=== PATIENT | female | born 1935 | race Asian ===

== ENCOUNTER 2017-12-17 13:35 | Inpatient (IN) | payer MEDICAID ==
[~2017-12-17] VITALS: Ht 154.9 cm; Wt 46.7 kg
[2017-12-17] MEDS ORDERED: SODIUM CHLORIDE 0.9% 500 ML IV ONE (13:56)
[2017-12-17] MEDS ORDERED: PANTOPRAZOLE SODIUM 40 MG/VIAL IV STA (13:56)
[2017-12-17] MEDS ORDERED: PANTOPRAZOLE 80 MG in SODIUM CHLORIDE 0.9% 80 ML IV ONE (14:00)
[2017-12-17] MEDS ORDERED: PIPERACILLIN/TAZ 3.375G PREMIX 50 ML IV ONE (14:00)
[2017-12-17 15:00] LABS: HEMATOCRIT. 31.7 % (36.0-48.0); HEMOGLOBIN. 10.4 g/dL (12.0-16.0); INR 1.1; MEAN CORPUSCULAR HEMOGLOBIN 32.9 pg (28.0-32.0); MEAN CORPUSCULAR VOLUME 100.1 fL (81.0-99.0); MEAN PLATELET VOLUME 10.6 fl (7.4-10.4); PLATELET 351 x1000/uL (130-400); PROTHROMBIN TIME 11.5 sec (9.4-11.6); RED BLOOD CELL COUNT 3.17 mill/uL (4.2-5.4); RED CELL DISTRIBUTION WIDTH 15.6 % (11.6-14.6)
[2017-12-17 15:13] LABS: CLARITY URINE TURBID (CLEAR); COLOR URINE YELLOW (YELLOW); KETONES URINE NEGATIVE (NEGATIVE); LEUKOCYTE ESTERASE URINE 2+ (NEGATIVE); NITRITE URINE NEGATIVE (NEGATIVE); OCCULT BLOOD URINE 3+ (NEGATIVE); PROTEIN URINE 3+ (NEGATIVE); SPECIFIC GRAVITY URINE 1.021 (1.005-1.030); UROBILINOGEN URINE 0.2 E.U./dL (0.2-1.0)
[2017-12-17 15:17] LABS: CARBON DIOXIDE 28 mEq/L (21-32); CHLORIDE 107 mEq/L (98-107)
[2017-12-17 15:34] LABS: TROPONIN I 0.12 ng/mL (0.00-0.04)
[2017-12-17 15:36] LABS: PLATELET ESTIMATE NORMAL
[2017-12-17] MEDS ORDERED: VANCOMYCIN 1 G PREMIX 200 ML IV SCH (16:45)
[2017-12-17 17:36] LABS: BG BASE EXCESS 3.3 mmol/L (-2.0-2.0); BG CARBOXYHEMOGLOBIN 0.3 % (0.5-1.5); BG DEOXYHEMOGLOBIN 2.4 % (0.0-5.0); BG FRACTION INSPIRED OXYGEN 40; BG HCO3 ACT 26.9 mmol/L (22.0-26.0); BG METHEMOGLOBIN 0.3 % (0.0-1.5); BG OXYGEN SATURATION 97.6 % (92.0-98.5); BG PH 7.479 (7.350-7.450); BG PO2 98.1 mmHg (75.0-100.0); BG SAMPLE SITE RIGHT RADIAL; BG TIDAL VOLUME(mL) 450 mL; BG TOTAL HEMOGLOBIN 11.1 g/dL (12.0-18.0); BG VENT MODE VENT - A/C; BG VENT RATE 14 set
[2017-12-17] MEDS ORDERED: ALBU2.5V13 NEB (21:19)
[2017-12-17] MEDS ORDERED: BENA40TA3 PO (21:19)
[2017-12-17] MEDS ORDERED: MULT9LIQ2 PO (21:19)
[2017-12-17] MEDS ORDERED: LORA1TAB PO (21:19)
[2017-12-17] MEDS ORDERED: ASCO-339 PO (21:19)
[2017-12-17] MEDS ORDERED: VIT500LI PO (21:19)
[2017-12-17] MEDS ORDERED: FE300LUD PO (21:19)
[2017-12-17] MEDS ORDERED: ACET160S PO (21:19)
[2017-12-17] MEDS ORDERED: NA P230E RC (21:19)
[2017-12-17] MEDS ORDERED: POLY15DR40 OP (21:19)
[2017-12-17] MEDS ORDERED: MIRT15TA6 PO (21:19)
[2017-12-17] MEDS ORDERED: FRUC15LI PO (21:19)
[2017-12-17] MEDS ORDERED: HYDR-4001 PO (21:19)
[2017-12-17] MEDS ORDERED: ATOR20TA65 PO (21:19)
[2017-12-17] MEDS ORDERED: LEVO50TA PO (21:19)
[2017-12-17] MEDS ORDERED: CLON0.1T PO (21:19)
[2017-12-17] MEDS ORDERED: ONDA4SOL2 PO (21:19)
[2017-12-17] MEDS ORDERED: LEVVL SQ (21:19)
[2017-12-17] MEDS ORDERED: CRAN3875 PO (21:19)
[2017-12-17] MEDS ORDERED: ACET-2128 PO ×2 (21:19→21:55)
[2017-12-17] MEDS ORDERED: DIPH25CA83 PO (21:19)
[2017-12-17] MEDS ORDERED: CALC-1011 PO (21:19)
[2017-12-17] MEDS ORDERED: DOCU-138 PO (21:19)
[2017-12-17] MEDS ORDERED: CLON0.3T PO (21:19)
[2017-12-17] MEDS ORDERED: TEMA15CA5 PO (21:19)
[2017-12-17] MEDS ORDERED: MOM PO (21:19)
[2017-12-17] MEDS ORDERED: BISA10SU62 RC (21:19)
[2017-12-17] MEDS ORDERED: FAMO20TA8 PO (21:19)
[2017-12-17] MEDS ORDERED: DEXTROSE 50% WATER 50ML SYRINGE IV PRN (23:00)
[2017-12-17] MEDS ORDERED: MORPHINE SULFATE 4 MG/ML CPJ (NOT FOR IM USE) IV PRN (23:00)
[2017-12-17] MEDS ORDERED: ENOXAPARIN 30MG/0.3ML SYR SUBCUT SCH (23:30)
[2017-12-17] MEDS: DEXT 5%/0.45% NACL 1000ML 1,000 ML IV SCH (23:32)
[2017-12-18] VITALS (13 sets, daily range): BP systolic 113–181; BP diastolic 55–97
[2017-12-18 06:35] LABS: HEMATOCRIT. 26.8 % (36.0-48.0); HEMOGLOBIN. 8.6 g/dL (12.0-16.0); MEAN CORPUSCULAR HEMOGLOBIN 32.4 pg (28.0-32.0); MEAN CORPUSCULAR VOLUME 100.8 fL (81.0-99.0); RED BLOOD CELL COUNT 2.66 mill/uL (4.2-5.4); RED CELL DISTRIBUTION WIDTH 16.1 % (11.6-14.6)
[2017-12-18] MEDS: BLOOD SUGAR DIAGNOSTIC STRIP TEST SCH ×4 (07:35→21:56)
[2017-12-18] MEDS: INSULIN LISPRO 100 UNITS/ML SUBCUT SCH ×4 (08:36→21:56)
[2017-12-18] MEDS: HYDRALAZINE 20MG/ML VIAL IV PRN (10:04)
[2017-12-18] MEDS ORDERED: LORAZEPAM 2MG/ML CPJ IV PRN (11:00)
[2017-12-18] MEDS ORDERED: LABETALOL 5MG/ML SYR 20 MG/4 ML SYRINGE IV PRN (11:00)
[2017-12-18] MEDS ORDERED: LEVOTHYROXINE SODIUM 100 MCG/ VIAL IV SCH (11:00)
[2017-12-18] MEDS: PANTOPRAZOLE SODIUM 40 MG/VIAL IV SCH ×2 (11:13→21:54)
[2017-12-18] MEDS ORDERED: POLYVINYL ALCOHOL OPHTH DROPS 15ML BOTHEYE PRN (12:00)
[2017-12-18] MEDS: PIPERACILLIN/TAZ 2.25G PREMIX 50 ML IV SCH ×2 (12:41→21:54)
[2017-12-18 12:59] LABS: MEAN PLATELET VOLUME 11.1 fl (7.4-10.4); PLATELET 310 x1000/uL (130-400); PLATELET ESTIMATE NORMAL
[2017-12-18 16:14] LABS: BASOPHILS % 0.2 % (0.0-2.0); HEMATOCRIT. 23.2 % (36.0-48.0); HEMOGLOBIN. 7.5 g/dL (12.0-16.0); LYMPHOCYTES % 7.7 % (20.0-50.0); MEAN CORPUSCULAR HEMOGLOBIN 32.4 pg (28.0-32.0); MEAN CORPUSCULAR VOLUME 100.3 fL (81.0-99.0); MEAN PLATELET VOLUME 10.4 fl (7.4-10.4); MONOCYTES % 10.9 % (2.0-8.0); NEUTROPHILS % 81.2 % (40.0-76.0); PLATELET 300 x1000/uL (130-400); RED BLOOD CELL COUNT 2.31 mill/uL (4.2-5.4); RED CELL DISTRIBUTION WIDTH 16.3 % (11.6-14.6)
[2017-12-18 17:07] LABS: HEPATITIS B SURFACE ANTIGEN NEGATIVE
[2017-12-18 17:16] LABS: FERRITIN 1374 ng/mL (10-291)
[2017-12-18 17:35] LABS: HEPATITIS B CORE AB IGM NEGATIVE
[2017-12-18 17:37] LABS: HEPATITIS A AB IGM NEGATIVE (NEGATIVE)
[2017-12-18] MEDS: DEXT 5%/0.45% NACL 1000ML 1,000 ML IV SCH (18:02)
[2017-12-18] MEDS ORDERED: VANCOMYCIN 500 MG PREMIX 100 ML IV NR (21:00)
[2017-12-18] MEDS: INSULIN GLARGINE UD 100 UNITS/ML SYR SUBCUT SCH (21:55)
[2017-12-19] VITALS (17 sets, daily range): BP systolic 127–162; BP diastolic 69–95
[2017-12-19] MEDS: ACETAMINOPHEN 650MG SUPP PR PRN (01:03)
[2017-12-19] MEDS: PIPERACILLIN/TAZ 2.25G PREMIX 50 ML IV SCH ×3 (04:40→19:43)
[2017-12-19] MEDS: LEVOTHYROXINE SODIUM 100 MCG/ VIAL IV SCH ×2 (05:55→08:21)
[2017-12-19] MEDS: HYDRALAZINE 20MG/ML VIAL IV PRN (05:57)
[2017-12-19 06:32] LABS: HEMATOCRIT 27.4 % (36.0-48.0); HEMOGLOBIN 9.2 g/dL (12.0-16.0)
[2017-12-19] MEDS: BLOOD SUGAR DIAGNOSTIC STRIP TEST SCH ×4 (07:31→21:00)
[2017-12-19 08:07] LABS: CHLORIDE 112 mEq/L (98-107)
[2017-12-19] MEDS: PANTOPRAZOLE SODIUM 40 MG/VIAL IV SCH ×2 (08:21→22:07)
[2017-12-19] MEDS: INSULIN LISPRO 100 UNITS/ML SUBCUT SCH ×4 (08:21→22:08)
[2017-12-19 09:19] LABS: CARBON DIOXIDE 21 mEq/L (21-32)
[2017-12-19] MEDS ORDERED: SIMETHICONE 40 MG/0.6 ML 30ML ONE (10:19)
[2017-12-19] MEDS ORDERED: SODIUM CHLORIDE 0.9% 10ML VIAL ONE (10:19)
[2017-12-19] MEDS ORDERED: MIDAZOLAM HCL 5 MG/5 ML VIAL ONE (14:53)
[2017-12-19] MEDS ORDERED: FENTANYL CITRATE/PF 50MCG/ML 2ML VIAL ONE (14:53)
[2017-12-19] MEDS: DEXT 5%/0.45% NACL 1000ML 1,000 ML IV SCH (15:04)
[2017-12-19] MEDS ORDERED: IPRATROPIUM/ALBUTEROL 0.5-3(2.5)MG/3ML NEB HHN PRN (15:45)
[2017-12-19] MEDS ORDERED: MIDAZOLAM HCL 5 MG/5 ML VIAL IV PRN (16:35)
[2017-12-19] MEDS ORDERED: FENTANYL CITRATE/PF 50MCG/ML 2ML VIAL IV PRN (16:36)
[2017-12-19 21:28] LABS: VITAMIN B12 SERUM 1354 pg/mL (211-911)
[2017-12-19 21:29] LABS: FOLIC ACID (FOLATE) SERUM > 20.00 ng/mL (>5.38)
[2017-12-19] MEDS: INSULIN GLARGINE UD 100 UNITS/ML SYR SUBCUT SCH (22:09)
[2017-12-20] VITALS (12 sets, daily range): BP systolic 124–169; BP diastolic 64–96
[2017-12-20] MEDS: DEXT 5%/0.45% NACL 1000ML 1,000 ML IV SCH ×2 (01:34→12:17)
[2017-12-20] MEDS: IPRATROPIUM/ALBUTEROL 0.5-3(2.5)MG/3ML NEB HHN SCH ×4 (01:36→20:03)
[2017-12-20] MEDS: PIPERACILLIN/TAZ 2.25G PREMIX 50 ML IV SCH ×3 (03:22→21:39)
[2017-12-20 06:21] LABS: HEMATOCRIT. 27.5 % (36.0-48.0); MEAN CORPUSCULAR HEMOGLOBIN 31.7 pg (28.0-32.0); PLATELET 247 x1000/uL (130-400); RED BLOOD CELL COUNT 2.93 mill/uL (4.2-5.4)
[2017-12-20 06:47] LABS: HEMOGLOBIN. 9.3 g/dL (12.0-16.0); MEAN CORPUSCULAR VOLUME 93.8 fL (81.0-99.0)
[2017-12-20 06:48] LABS: RED CELL DISTRIBUTION WIDTH 20.3 % (11.6-14.6)
[2017-12-20] MEDS: BLOOD SUGAR DIAGNOSTIC STRIP TEST SCH ×4 (07:30→21:56)
[2017-12-20] MEDS: INSULIN LISPRO 100 UNITS/ML SUBCUT SCH ×4 (08:00→21:55)
[2017-12-20] MEDS: PANTOPRAZOLE SODIUM 40 MG/VIAL IV SCH ×2 (08:42→21:40)
[2017-12-20] MEDS: LEVOTHYROXINE SODIUM 100 MCG/ VIAL IV SCH (08:42)
[2017-12-20] MEDS: HYDRALAZINE 20MG/ML VIAL IV PRN (13:48)
[2017-12-20] MEDS: POTASSIUM CHLORIDE 20MEQ/PACKET PEG SCH (13:49)
[2017-12-20] MEDS ORDERED: VANCOMYCIN 500 MG PREMIX 100 ML IV NR (15:00)
[2017-12-20 16:23] LABS: NUCLEATED RED BLOOD CELLS 1 /100 WBC; PLATELET ESTIMATE NORMAL
[2017-12-20] MEDS: INSULIN GLARGINE UD 100 UNITS/ML SYR SUBCUT SCH (22:25)
[2017-12-21] VITALS (13 sets, daily range): BP systolic 117–161; BP diastolic 67–96
[2017-12-21] MEDS: IPRATROPIUM/ALBUTEROL 0.5-3(2.5)MG/3ML NEB HHN SCH ×4 (02:09→20:10)
[2017-12-21] MEDS: DEXT 5%/0.45% NACL 1000ML 1,000 ML IV SCH (05:06)
[2017-12-21] MEDS: PIPERACILLIN/TAZ 2.25G PREMIX 50 ML IV SCH ×3 (05:06→21:15)
[2017-12-21] MEDS: INSULIN LISPRO 100 UNITS/ML SUBCUT SCH ×4 (07:20→21:00)
[2017-12-21] MEDS: BLOOD SUGAR DIAGNOSTIC STRIP TEST SCH ×4 (07:21→21:15)
[2017-12-21 08:24] LABS: BG BASE EXCESS -0.2 mmol/L (-2.0-2.0); BG CARBOXYHEMOGLOBIN 0.2 % (0.5-1.5); BG DEOXYHEMOGLOBIN 1.6 % (0.0-5.0); BG FRACTION INSPIRED OXYGEN 40; BG HCO3 ACT 23.7 mmol/L (22.0-26.0); BG METHEMOGLOBIN 0.6 % (0.0-1.5); BG OXYGEN SATURATION 98.4 % (92.0-98.5); BG OXYHEMOGLOBIN 97.6 % (94.0-97.0); BG PCO2 35.4 mmHg (35.0-45.0); BG PH 7.443 (7.350-7.450); BG PO2 119.8 mmHg (75.0-100.0); BG SAMPLE SITE RIGHT RADIAL; BG TIDAL VOLUME(mL) 450 mL; BG TOTAL HEMOGLOBIN 9.6 g/dL (12.0-18.0); BG VENT MODE VENT - A/C; BG VENT RATE 14 set
[2017-12-21] MEDS: PANTOPRAZOLE SODIUM 40 MG/VIAL IV SCH ×2 (08:25→21:14)
[2017-12-21] MEDS: POTASSIUM CHLORIDE 20MEQ/PACKET PEG SCH (08:25)
[2017-12-21] MEDS: LEVOTHYROXINE SODIUM 100 MCG/ VIAL IV SCH (08:25)
[2017-12-21 09:21] LABS: HEMATOCRIT 28.9 % (36.0-48.0); HEMOGLOBIN 9.4 g/dL (12.0-16.0)
[2017-12-21 11:37] LABS: HEMATOCRIT. 28.9 % (36.0-48.0); HEMOGLOBIN. 9.4 g/dL (12.0-16.0); MEAN CORPUSCULAR HEMOGLOBIN 31.2 pg (28.0-32.0); MEAN CORPUSCULAR VOLUME 95.9 fL (81.0-99.0); MEAN PLATELET VOLUME 10.1 fl (7.4-10.4); PLATELET 268 x1000/uL (130-400); RED BLOOD CELL COUNT 3.01 mill/uL (4.2-5.4); RED CELL DISTRIBUTION WIDTH 19.9 % (11.6-14.6)
[2017-12-21] MEDS ORDERED: AMIKACIN SULFATE IV NR (16:00)
[2017-12-21] MEDS ORDERED: SODIUM CHLORIDE 0.9% IV NR (16:00)
[2017-12-21 16:19] LABS: ATYPICAL LYMPHOCYTES 2
[2017-12-21 16:20] LABS: PLATELET ESTIMATE NORMAL
[2017-12-21] MEDS: ACETAMINOPHEN 650MG SUPP PR PRN (17:39)
[2017-12-21] MEDS: INSULIN GLARGINE UD 100 UNITS/ML SYR SUBCUT SCH (21:31)
[2017-12-22] VITALS (12 sets, daily range): BP systolic 103–180; BP diastolic 59–93
[2017-12-22] MEDS: IPRATROPIUM/ALBUTEROL 0.5-3(2.5)MG/3ML NEB HHN SCH ×4 (03:10→19:45)
[2017-12-22] MEDS: HYDRALAZINE 20MG/ML VIAL IV PRN (04:30)
[2017-12-22] MEDS: PIPERACILLIN/TAZ 2.25G PREMIX 50 ML IV SCH ×2 (04:30→12:37)
[2017-12-22] MEDS: BLOOD SUGAR DIAGNOSTIC STRIP TEST SCH ×3 (05:45→18:05)
[2017-12-22] MEDS: INSULIN LISPRO 100 UNITS/ML SUBCUT SCH ×3 (06:12→18:06)
[2017-12-22 06:31] LABS: HEMOGLOBIN 10.6 g/dL (12.0-16.0)
[2017-12-22] MEDS: PANTOPRAZOLE SODIUM 40 MG/VIAL IV SCH ×2 (08:30→21:04)
[2017-12-22] MEDS: POTASSIUM CHLORIDE 20MEQ/PACKET PEG SCH (08:30)
[2017-12-22] MEDS: LEVOTHYROXINE SODIUM 100 MCG/ VIAL IV SCH (08:30)
[2017-12-22 10:14] LABS: HEMATOCRIT. 33.1 % (36.0-48.0); HEMOGLOBIN. 10.5 g/dL (12.0-16.0); MEAN CORPUSCULAR VOLUME 97.5 fL (81.0-99.0); MEAN PLATELET VOLUME 10.1 fl (7.4-10.4); PLATELET 296 x1000/uL (130-400); RED BLOOD CELL COUNT 3.39 mill/uL (4.2-5.4); RED CELL DISTRIBUTION WIDTH 19.8 % (11.6-14.6)
[2017-12-22 10:47] LABS: PLATELET ESTIMATE NORMAL
[2017-12-22] MEDS ORDERED: VANCOMYCIN 500 MG PREMIX 100 ML IV NR (13:00)
[2017-12-22] MEDS ORDERED: INSULIN LISPRO 100 UNITS/ML SUBCUT SCH (18:00)
[2017-12-22] MEDS ORDERED: *TOBRAMYCIN PER PHARMACY XX SCH (18:15)
[2017-12-22] MEDS ORDERED: MORPHINE SULFATE 2 MG/ML CPJ (NOT FOR IM USE) IV PRN (19:15)
[2017-12-22] MEDS ORDERED: TOBRAMYCIN SULFATE 100 MG in SODIUM CHLORIDE 0.9% 100 ML IV NR (20:00)
[2017-12-22] MEDS ORDERED: AMIKACIN SULFATE 450 MG in SODIUM CHLORIDE 0.9% 100 ML IV NR (20:00)
[2017-12-22] MEDS: INSULIN GLARGINE UD 100 UNITS/ML SYR SUBCUT SCH (22:06)
[2017-12-23] VITALS (14 sets, daily range): BP systolic 108–158; BP diastolic 60–89
[2017-12-23] MEDS: IPRATROPIUM/ALBUTEROL 0.5-3(2.5)MG/3ML NEB HHN SCH ×4 (01:45→19:48)
[2017-12-23] MEDS: BLOOD SUGAR DIAGNOSTIC STRIP TEST SCH ×4 (05:19→17:17)
[2017-12-23] MEDS: INSULIN LISPRO 100 UNITS/ML SUBCUT SCH ×4 (05:35→17:15)
[2017-12-23 05:55] LABS: PHOSPHORUS 1.9 mg/dL (2.5-4.9)
[2017-12-23 06:05] LABS: BASOPHILS % 0.3 % (0.0-2.0); EOSINOPHILS % 4.3 % (0.0-5.0); HEMATOCRIT. 25.5 % (36.0-48.0); HEMOGLOBIN. 8.4 g/dL (12.0-16.0); MEAN CORPUSCULAR HEMOGLOBIN 31.9 pg (28.0-32.0); MEAN PLATELET VOLUME 10.3 fl (7.4-10.4); MONOCYTES % 5.2 % (2.0-8.0); NEUTROPHILS % 80.2 % (40.0-76.0); PLATELET 235 x1000/uL (130-400); RED BLOOD CELL COUNT 2.63 mill/uL (4.2-5.4); RED CELL DISTRIBUTION WIDTH 19.5 % (11.6-14.6)
[2017-12-23] MEDS: PANTOPRAZOLE SODIUM 40 MG/VIAL IV SCH ×2 (08:23→20:55)
[2017-12-23] MEDS: POTASSIUM CHLORIDE 20MEQ/PACKET PEG SCH (08:23)
[2017-12-23] MEDS: LEVOTHYROXINE SODIUM 100 MCG/ VIAL IV SCH (08:23)
[2017-12-23 09:47] LABS: TOBRAMYCIN RANDOM 4.1 ucg/mL
[2017-12-23] MEDS: VANCOMYCIN 500 MG PREMIX 100 ML IV SCH (17:20)
[2017-12-23] MEDS: TOBRAMYCIN SULFATE 120 MG in SODIUM CHLORIDE 0.9% 100 ML IV SCH (20:55)
[2017-12-23] MEDS ORDERED: POTASSIUM PHOS,M-BASIC-D-BASIC 20 MMOL in DEXT 5% WATER 243.3333 ML IV ONE (22:00)
[2017-12-23] MEDS: INSULIN GLARGINE UD 100 UNITS/ML SYR SUBCUT SCH (22:52)
[2017-12-24] VITALS (13 sets, daily range): BP systolic 128–160; BP diastolic 70–89
[2017-12-24] MEDS: IPRATROPIUM/ALBUTEROL 0.5-3(2.5)MG/3ML NEB HHN SCH ×4 (01:54→20:16)
[2017-12-24 05:59] LABS: BASOPHILS % 0.3 % (0.0-2.0); EOSINOPHILS % 5.6 % (0.0-5.0); HEMATOCRIT. 25.1 % (36.0-48.0); HEMOGLOBIN. 8.4 g/dL (12.0-16.0); LYMPHOCYTES % 11.4 % (20.0-50.0); MEAN CORPUSCULAR HEMOGLOBIN 32.2 pg (28.0-32.0); MEAN CORPUSCULAR VOLUME 96.9 fL (81.0-99.0); MEAN PLATELET VOLUME 10.3 fl (7.4-10.4); MONOCYTES % 5.5 % (2.0-8.0); NEUTROPHILS % 77.2 % (40.0-76.0); PLATELET 262 x1000/uL (130-400); RED BLOOD CELL COUNT 2.59 mill/uL (4.2-5.4); RED CELL DISTRIBUTION WIDTH 19.5 % (11.6-14.6)
[2017-12-24] MEDS: INSULIN LISPRO 100 UNITS/ML SUBCUT SCH ×5 (06:00→23:51)
[2017-12-24] MEDS: BLOOD SUGAR DIAGNOSTIC STRIP TEST SCH ×5 (06:00→23:42)
[2017-12-24 06:33] LABS: PHOSPHORUS 4.6 mg/dL (2.5-4.9)
[2017-12-24] MEDS: LEVOTHYROXINE SODIUM 100 MCG/ VIAL IV SCH (08:12)
[2017-12-24] MEDS: PANTOPRAZOLE SODIUM 40 MG/VIAL IV SCH (08:12)
[2017-12-24] MEDS: POTASSIUM CHLORIDE 20MEQ/PACKET PEG SCH (08:12)
[2017-12-24] MEDS ORDERED: ASCORBIC ACID 500MG/5ML 120ML PO ONE (10:45)
[2017-12-24] MEDS ORDERED: AMLODIPINE 5MG TABLET PO NR (11:00)
[2017-12-24] MEDS: MULTIVITAMINS,THER W-MINERALS TABLET PO SCH (11:24)
[2017-12-24] MEDS: ASCORBIC ACID 500 MG TABLET PO SCH (11:25)
[2017-12-24] MEDS: FERROUS SULFATE 300MG/5ML UDC PO SCH ×2 (14:10→16:31)
[2017-12-24] MEDS: CALCIUM CARBONATE/VITAMIN D3 500MG TABLET PO SCH (16:31)
[2017-12-24] MEDS: DEXT 5%/0.45% NACL 1000ML 1,000 ML IV SCH (16:32)
[2017-12-24] MEDS: MIRTAZAPINE 15MG TABLET PO SCH (21:10)
[2017-12-24] MEDS ORDERED: INSULIN GLARGINE UD 100 UNITS/ML SYR SUBCUT SCH (22:00)
[2017-12-25] VITALS (19 sets, daily range): BP systolic 113–164; BP diastolic 65–84
[2017-12-25] MEDS: IPRATROPIUM/ALBUTEROL 0.5-3(2.5)MG/3ML NEB HHN SCH ×4 (02:03→20:11)
[2017-12-25] MEDS: VANCOMYCIN 500 MG PREMIX 100 ML IV SCH (05:25)
[2017-12-25 05:46] LABS: BASOPHILS % 0.4 % (0.0-2.0); EOSINOPHILS % 3.9 % (0.0-5.0); HEMATOCRIT. 26.5 % (36.0-48.0); HEMOGLOBIN. 8.8 g/dL (12.0-16.0); LYMPHOCYTES % 12.4 % (20.0-50.0); MEAN CORPUSCULAR HEMOGLOBIN 31.9 pg (28.0-32.0); MEAN CORPUSCULAR VOLUME 96.6 fL (81.0-99.0); MEAN PLATELET VOLUME 10.5 fl (7.4-10.4); MONOCYTES % 5.7 % (2.0-8.0); NEUTROPHILS % 77.6 % (40.0-76.0); PLATELET 306 x1000/uL (130-400); RED BLOOD CELL COUNT 2.74 mill/uL (4.2-5.4); RED CELL DISTRIBUTION WIDTH 18.5 % (11.6-14.6)
[2017-12-25] MEDS: INSULIN LISPRO 100 UNITS/ML SUBCUT SCH ×4 (06:00→23:49)
[2017-12-25] MEDS: BLOOD SUGAR DIAGNOSTIC STRIP TEST SCH ×4 (06:06→23:49)
[2017-12-25] MEDS: FERROUS SULFATE 300MG/5ML UDC PO SCH ×3 (08:20→17:37)
[2017-12-25] MEDS: POTASSIUM CHLORIDE 20MEQ/PACKET PEG SCH (08:20)
[2017-12-25] MEDS: ATORVASTATIN CALCIUM 20MG TABLET PO SCH (08:21)
[2017-12-25] MEDS: AMLODIPINE 5MG TABLET PO SCH (08:21)
[2017-12-25] MEDS: CALCIUM CARBONATE/VITAMIN D3 500MG TABLET PO SCH ×2 (08:21→17:37)
[2017-12-25] MEDS: PANTOPRAZOLE SODIUM 40 MG/VIAL IV SCH (08:25)
[2017-12-25] MEDS: ASCORBIC ACID 500 MG TABLET PO SCH (08:26)
[2017-12-25] MEDS: MULTIVITAMINS,THER W-MINERALS TABLET PO SCH (08:26)
[2017-12-25 10:54] LABS: TOBRAMYCIN RANDOM 0.8 ucg/mL
[2017-12-25] MEDS: LEVOTHYROXINE SODIUM 75MCG TABLET PO SCH (11:30)
[2017-12-25] MEDS: METOCLOPRAMIDE HCL 10MG/2ML VIAL IV SCH (17:37)
[2017-12-25] MEDS: DEXT 5%/0.45% NACL 1000ML 1,000 ML IV SCH (17:38)
[2017-12-25] MEDS: TOBRAMYCIN SULFATE 120 MG in SODIUM CHLORIDE 0.9% 100 ML IV SCH (20:10)
[2017-12-25] MEDS: MIRTAZAPINE 15MG TABLET PO SCH (20:10)
[2017-12-26] VITALS (13 sets, daily range): BP systolic 105–162; BP diastolic 45–108
[2017-12-26] MEDS: IPRATROPIUM/ALBUTEROL 0.5-3(2.5)MG/3ML NEB HHN SCH ×4 (02:12→20:02)
[2017-12-26] MEDS: METOCLOPRAMIDE HCL 10MG/2ML VIAL IV SCH ×4 (05:30→18:08)
[2017-12-26] MEDS: INSULIN LISPRO 100 UNITS/ML SUBCUT SCH ×3 (05:45→18:00)
[2017-12-26] MEDS: BLOOD SUGAR DIAGNOSTIC STRIP TEST SCH ×3 (05:45→18:08)
[2017-12-26 06:37] LABS: BASOPHILS % 0.3 % (0.0-2.0); EOSINOPHILS % 3.2 % (0.0-5.0); HEMATOCRIT. 26.7 % (36.0-48.0); HEMOGLOBIN. 8.8 g/dL (12.0-16.0); LYMPHOCYTES % 13.2 % (20.0-50.0); MEAN CORPUSCULAR HEMOGLOBIN 31.8 pg (28.0-32.0); MEAN CORPUSCULAR VOLUME 96.1 fL (81.0-99.0); MEAN PLATELET VOLUME 9.9 fl (7.4-10.4); MONOCYTES % 6.4 % (2.0-8.0); NEUTROPHILS % 76.9 % (40.0-76.0); PLATELET 300 x1000/uL (130-400); RED BLOOD CELL COUNT 2.78 mill/uL (4.2-5.4); RED CELL DISTRIBUTION WIDTH 18.6 % (11.6-14.6)
[2017-12-26] MEDS: LEVOTHYROXINE SODIUM 75MCG TABLET PO SCH (08:16)
[2017-12-26] MEDS: ATORVASTATIN CALCIUM 20MG TABLET PO SCH (08:16)
[2017-12-26] MEDS: POTASSIUM CHLORIDE 20MEQ/PACKET PEG SCH (08:16)
[2017-12-26] MEDS: PANTOPRAZOLE SODIUM 40 MG/VIAL IV SCH (08:16)
[2017-12-26] MEDS: FERROUS SULFATE 300MG/5ML UDC PO SCH ×3 (08:16→18:08)
[2017-12-26] MEDS: CALCIUM CARBONATE/VITAMIN D3 500MG TABLET PO SCH ×2 (08:17→18:08)
[2017-12-26] MEDS: ASCORBIC ACID 500 MG TABLET PO SCH (08:17)
[2017-12-26] MEDS: AMLODIPINE 5MG TABLET PO SCH (08:17)
[2017-12-26] MEDS: MULTIVITAMINS,THER W-MINERALS TABLET PO SCH (08:17)
[2017-12-26 08:19] LABS: BG BASE EXCESS -2.3 mmol/L (-2.0-2.0); BG CARBOXYHEMOGLOBIN 0.3 % (0.5-1.5); BG DEOXYHEMOGLOBIN 2.5 % (0.0-5.0); BG FRACTION INSPIRED OXYGEN 30; BG HCO3 ACT 20.9 mmol/L (22.0-26.0); BG METHEMOGLOBIN 0.5 % (0.0-1.5); BG OXYGEN SATURATION 97.5 % (92.0-98.5); BG OXYHEMOGLOBIN 96.7 % (94.0-97.0); BG PO2 92.8 mmHg (75.0-100.0); BG SAMPLE SITE RIGHT RADIAL; BG TIDAL VOLUME(mL) 450 mL; BG TOTAL HEMOGLOBIN 9.6 g/dL (12.0-18.0); BG VENT MODE VENT - A/C; BG VENT RATE 14 set
[2017-12-26] MEDS ORDERED: VANCOMYCIN 500 MG PREMIX 100 ML IV SCH (18:00)
[2017-12-26] MEDS ORDERED: VANCOMYCIN 750 MG PREMIX 150 ML IV SCH (18:00)
[2017-12-26] MEDS: DEXT 5%/0.45% NACL 1000ML 1,000 ML IV SCH (20:14)
[2017-12-26] MEDS: MIRTAZAPINE 15MG TABLET PO SCH (20:15)
[2017-12-27] VITALS (9 sets, daily range): BP systolic 123–158; BP diastolic 72–86
[2017-12-27] MEDS: IPRATROPIUM/ALBUTEROL 0.5-3(2.5)MG/3ML NEB HHN SCH ×2 (01:58→08:14)
[2017-12-27] MEDS: METOCLOPRAMIDE HCL 10MG/2ML VIAL IV SCH ×3 (05:04→12:00)
[2017-12-27] MEDS: BLOOD SUGAR DIAGNOSTIC STRIP TEST SCH ×3 (05:21→12:01)
[2017-12-27] MEDS: INSULIN LISPRO 100 UNITS/ML SUBCUT SCH ×3 (05:21→12:00)
[2017-12-27 06:21] LABS: BASOPHILS % 0.7 % (0.0-2.0); EOSINOPHILS % 3.6 % (0.0-5.0); HEMATOCRIT. 26.8 % (36.0-48.0); HEMOGLOBIN. 8.7 g/dL (12.0-16.0); LYMPHOCYTES % 16.3 % (20.0-50.0); MEAN CORPUSCULAR HEMOGLOBIN 31.5 pg (28.0-32.0); MEAN CORPUSCULAR VOLUME 97.4 fL (81.0-99.0); MEAN PLATELET VOLUME 10.7 fl (7.4-10.4); MONOCYTES % 7.8 % (2.0-8.0); NEUTROPHILS % 71.6 % (40.0-76.0); PLATELET 301 x1000/uL (130-400); RED BLOOD CELL COUNT 2.75 mill/uL (4.2-5.4); RED CELL DISTRIBUTION WIDTH 18.7 % (11.6-14.6)
[2017-12-27] MEDS: DEXT 5%/0.45% NACL 1000ML 1,000 ML IV SCH (07:55)
[2017-12-27] MEDS: PANTOPRAZOLE SODIUM 40 MG/VIAL IV SCH (08:05)
[2017-12-27] MEDS: CALCIUM CARBONATE/VITAMIN D3 500MG TABLET PO SCH ×2 (08:05→17:00)
[2017-12-27] MEDS: FERROUS SULFATE 300MG/5ML UDC PO SCH ×3 (08:05→17:08)
[2017-12-27] MEDS: POTASSIUM CHLORIDE 20MEQ/PACKET PEG SCH (08:05)
[2017-12-27] MEDS: AMLODIPINE 5MG TABLET PO SCH (08:05)
[2017-12-27] MEDS: LEVOTHYROXINE SODIUM 75MCG TABLET PO SCH (08:05)
[2017-12-27] MEDS: ATORVASTATIN CALCIUM 20MG TABLET PO SCH (08:05)
[2017-12-27] MEDS: ASCORBIC ACID 500 MG TABLET PO SCH (08:05)
[2017-12-27] MEDS: MULTIVITAMINS,THER W-MINERALS TABLET PO SCH (08:06)
[2017-12-27 10:39] LABS: TOBRAMYCIN RANDOM 0.9 ucg/mL
[2017-12-27] MEDS ORDERED: SORBITOL 70% SOLN 30ML PO SCH (13:00)
[2017-12-27] MEDS: ACETAMINOPHEN 650MG SUPP PR PRN (17:08)
[2017-12-28] MEDS ORDERED: VANCOMYCIN 500 MG PREMIX 100 ML IV NR
== END 2017-12-27 17:30 | DRG 222 ==
LOC: ER 13:58 → 5EST 17:05 → EDBEDREQSVC 17:08 → EDBEDREQTM 17:08 → EDBEDREQ 17:08 → ENRESERV 18:07
PROVIDERS: ADMIT Internal Medicine Nephrology; ATTEND Internal Medicine Nephrology
PROC: 5A1955Z Respiratory Ventilation, Greater than 96 Consecutive Hours (ICD-10-PCS; principal; 2017-12-17)
PROC: 0DH63UZ Insertion of Feeding Device into Stomach, Percutaneous Approach (ICD-10-PCS; 2017-12-19)
PROC: 0DP64UZ Removal of Feeding Device from Stomach, Percutaneous Endoscopic Approach (ICD-10-PCS; 2017-12-19)
PROC: 30233N1 Transfusion of Nonautologous Red Blood Cells into Peripheral Vein, Percutaneous Approach (ICD-10-PCS; 2017-12-19)
DX: K94.21 Gastrostomy hemorrhage (principal); J69.0 Pneumonitis due to inhalation of food and vomit; J96.20 Acute and chronic respiratory failure, unspecified whether with hypoxia or hypercapnia; E43 Unspecified severe protein-calorie malnutrition; A41.9 Sepsis, unspecified organism; I50.43 Acute on chronic combined systolic (congestive) and diastolic (congestive) heart failure; J15.1 Pneumonia due to Pseudomonas; E83.42 Hypomagnesemia; K56.7 Ileus, unspecified; N17.9 Acute kidney failure, unspecified; E87.0 Hyperosmolality and hypernatremia; K94.23 Gastrostomy malfunction; I13.0 Hypertensive heart and chronic kidney disease with heart failure and stage 1 through stage 4 chronic kidney disease, or unspecified chronic kidney disease; N39.0 Urinary tract infection, site not specified; D64.9 Anemia, unspecified; E03.9 Hypothyroidism, unspecified; E83.52 Hypercalcemia; E11.65 Type 2 diabetes mellitus with hyperglycemia; R62.7 Adult failure to thrive; N81.4 Uterovaginal prolapse, unspecified; N18.9 Chronic kidney disease, unspecified; E11.22 Type 2 diabetes mellitus with diabetic chronic kidney disease; E83.39 Other disorders of phosphorus metabolism; E87.6 Hypokalemia; Y83.3 Surgical operation with formation of external stoma as the cause of abnormal reaction of the patient, or of later complication, without mention of misadventure at the time of the procedure; F03.90 Unspecified dementia, unspecified severity, without behavioral disturbance, psychotic disturbance, mood disturbance, and anxiety; Y82.8 Other medical devices associated with adverse incidents; Z87.820 Personal history of traumatic brain injury; Z68.1 Body mass index [BMI] 19.9 or less, adult; Z99.11 Dependence on respirator [ventilator] status
CPT/HCPCS: 36415; 36600; 71045; 74018; 76700; 80048; 80053; 80200; 80202; 81001; 82270; 82375; 82607; 82728; 82746; 82805; 82962; 83036; 83540; 83550; 83605; 83735; 83880; 83970; 84100; 84145; 84443; 84484; 85014; 85018; 85025; 85610; 86705; 86709; 86803; 86850; 86900; 86920; 87040; 87070; 87077; 87086; 87186; 87340; 87804; 93005; 94002; 94003; 94640; 94664; 96365; 96366; 96368; 96375; 99285; A4216; A6261; C9113; J0278; J0360; J1650; J1815; J2060; J2250; J2543; J2765; J3010; J3260; J3370; J3490; J7030; J7040; J7050; J7060; J7620; P9016; A4315

== ENCOUNTER 2018-05-08 21:00 | Inpatient (IN) | payer MEDICAID ==
[~2018-05-08] VITALS: Ht 154.9 cm; Wt 59.1 kg
[~2018-05-08 21:00] MED LIST: ACET-2128 PO; ALBU2.5V13 NEB; ASCO-339 PO; ATOR20TA65 PO; BENA40TA3 PO; BISA10SU62 RC; CALC-1011 PO; CLON0.1T PO; CRAN3875 PO; DIPH25CA83 PO; DOCU-138 PO; FAMO20TA8 PO; FE300LUD PO; FRUC15LI PO; HYDR-4001 PO; LEVO50TA PO; LEVVL SQ; LORA1TAB PO; MIRT15TA6 PO; MOM PO; MULT9LIQ2 PO; NA P230E RC; ONDA4SOL2 PO; POLY15DR40 OP; TEMA15CA5 PO; VIT500LI PO
[2018-05-08] MEDS ORDERED: VANCOMYCIN 500 MG PREMIX 100 ML IV STA (21:13)
[2018-05-08] MEDS ORDERED: PIPERACILLIN/TAZ 3.375G PREMIX 50 ML IV ONE (21:15)
[2018-05-08] MEDS ORDERED: SODIUM CHLORIDE 0.9% 1000ML BAG (SEPSIS BOLUS) IV ONE (21:15)
[2018-05-08] MEDS ORDERED: VECURONIUM BROMIDE 10 MG/VIAL IV ONE (21:30)
[2018-05-08] MEDS ORDERED: ONDANSETRON HCL 4MG/2ML VIAL IV ONE (21:30)
[2018-05-08 21:59] LABS: BG BASE EXCESS -0.4 mmol/L (-2.0-2.0); BG CARBOXYHEMOGLOBIN 0.4 % (0.5-1.5); BG DEOXYHEMOGLOBIN 0.3 % (0.0-5.0); BG FRACTION INSPIRED OXYGEN 100; BG HCO3 ACT 24.7 mmol/L (22.0-26.0); BG METHEMOGLOBIN 0.3 % (0.0-1.5); BG OXYGEN SATURATION 99.7 % (92.0-98.5); BG PCO2 42.1 mmHg (35.0-45.0); BG PH 7.386 (7.350-7.450); BG PIP 16 cmH2O; BG PO2 429.7 mmHg (75.0-100.0); BG SAMPLE SITE LEFT RADIAL; BG TIDAL VOLUME(mL) 400 mL; BG TOTAL HEMOGLOBIN 11.9 g/dL (12.0-18.0); BG VENT MODE VENT - A/C; BG VENT RATE 14 set
[2018-05-08 22:11] LABS: CHLORIDE 107 mEq/L (98-107)
[2018-05-08 22:13] LABS: PARTIAL THROMBOPLASTIN TIME 23.8 sec (23.4-31.0); PROTHROMBIN TIME 10.8 sec (9.4-11.6)
[2018-05-08] MEDS ORDERED: HYDROMORPHONE HCL/PF 2MG/ML CPJ IV PRN (23:00)
[2018-05-09] VITALS (30 sets, daily range): BP systolic 91–150; BP diastolic 42–103
[2018-05-09 01:05] LABS: HEMATOCRIT. 30.3 % (36.0-48.0); HEMOGLOBIN. 9.5 g/dL (12.0-16.0); MEAN CORPUSCULAR HEMOGLOBIN 32.4 pg (28.0-32.0); MEAN CORPUSCULAR VOLUME 102.7 fL (81.0-99.0); PLATELET 230 x1000/uL (130-400); RED BLOOD CELL COUNT 2.95 mill/uL (4.2-5.4); RED CELL DISTRIBUTION WIDTH 15.6 % (11.6-14.6)
[2018-05-09] MEDS ORDERED: ONDANSETRON HCL 4MG/2ML VIAL IV PRN (04:08)
[2018-05-09] MEDS ORDERED: MAGNESIUM/ALUMINUM HYDROXIDE/SIMETHICONE 30ML UDC PO PRN (04:09)
[2018-05-09] MEDS ORDERED: ACETAMINOPHEN 650MG/20.3ML UDC GT PRN (04:09)
[2018-05-09] MEDS ORDERED: LORAZEPAM 2MG/ML CPJ IV PRN (04:10)
[2018-05-09] MEDS ORDERED: MORPHINE SULFATE 4 MG/ML CPJ (NOT FOR IM USE) IV PRN (04:12)
[2018-05-09] MEDS: SODIUM CHLORIDE 0.9% 1,000 ML IV SCH ×2 (04:27→22:11)
[2018-05-09 04:29] LABS: PLATELET ESTIMATE NORMAL
[2018-05-09] MEDS ORDERED: METRONIDAZOLE 500 MG PREMIX 100 ML IV SCH (05:00)
[2018-05-09] MEDS ORDERED: CEFEPIME 2,000 MG in DEXT 5% WATER 100 ML IV SCH (06:00)
[2018-05-09] MEDS: IPRATROPIUM/ALBUTEROL 0.5-3(2.5)MG/3ML NEB HHN SCH ×5 (08:15→23:46)
[2018-05-09] MEDS ORDERED: ENOXAPARIN 40MG/0.4ML SYR SUBCUT SCH (09:00)
[2018-05-09] MEDS: ENOXAPARIN 30MG/0.3ML SYR SUBCUT SCH (09:48)
[2018-05-09 09:52] LABS: BASOPHILS % 0.4 % (0.0-2.0); EOSINOPHILS % 0.8 % (0.0-5.0); HEMOGLOBIN. 9.4 g/dL (12.0-16.0); LYMPHOCYTES % 8.3 % (20.0-50.0); MEAN CORPUSCULAR HEMOGLOBIN 33.2 pg (28.0-32.0); MEAN CORPUSCULAR VOLUME 102.1 fL (81.0-99.0); MEAN PLATELET VOLUME 11.9 fl (7.4-10.4); MONOCYTES % 6.9 % (2.0-8.0); NEUTROPHILS % 83.6 % (40.0-76.0); PLATELET 206 x1000/uL (130-400); RED BLOOD CELL COUNT 2.84 mill/uL (4.2-5.4); RED CELL DISTRIBUTION WIDTH 15.9 % (11.6-14.6)
[2018-05-09 11:31] LABS: CLARITY URINE CLOUDY (CLEAR); COLOR URINE YELLOW (YELLOW); KETONES URINE NEGATIVE (NEGATIVE); LEUKOCYTE ESTERASE URINE 3+ (NEGATIVE); NITRITE URINE NEGATIVE (NEGATIVE); OCCULT BLOOD URINE TRACE (NEGATIVE); PH URINE 6.5 (4.5-8.0); PROTEIN URINE 1+ (NEGATIVE); SPECIFIC GRAVITY URINE 1.017 (1.005-1.030); UROBILINOGEN URINE 0.2 E.U./dL (0.2-1.0)
[2018-05-09 12:23] LABS: *AMPHETAMINES SCREEN URINE NEGATIVE (NEGATIVE); *BARBITURATES SCREEN URINE NEGATIVE (NEGATIVE)
[2018-05-09 12:24] LABS: *BENZODIAZEPINES SCREEN URINE NEGATIVE (NEGATIVE); *COCAINE SCREEN URINE NEGATIVE (NEGATIVE); METHADONE URINE SCREEN NEGATIVE (NEGATIVE); OPIATES URINE SCREEN PRESUMTIVE POSITIVE (NEGATIVE)
[2018-05-09 12:25] LABS: CANNABINOID URINE SCREEN NEGATIVE (NEGATIVE); PHENCYCLIDINE URINE SCREEN NEGATIVE (NEGATIVE)
[2018-05-09] MEDS ORDERED: PIPERACILLIN/TAZ 3.375G PREMIX 50 ML IV SCH (13:00)
[2018-05-09] MEDS ORDERED: PANTOPRAZOLE 40MG DR TABLET PO ONE (13:15)
[2018-05-09] MEDS ORDERED: PANTOPRAZOLE SODIUM 40 MG/VIAL IV SCH (13:15)
[2018-05-09] MEDS: PIPERACILLIN/TAZ 2.25G PREMIX 50 ML IV SCH ×2 (14:00→19:38)
[2018-05-09 16:54] LABS: T4 FREE 1.12 ng/dL (0.76-1.46)
[2018-05-10] VITALS (12 sets, daily range): BP systolic 97–143; BP diastolic 57–73
[2018-05-10] MEDS: TEMAZEPAM 15MG CAPSULE PO SCH ×2 (01:59→21:59)
[2018-05-10] MEDS: PIPERACILLIN/TAZ 2.25G PREMIX 50 ML IV SCH ×4 (02:00→21:59)
[2018-05-10] MEDS: IPRATROPIUM/ALBUTEROL 0.5-3(2.5)MG/3ML NEB HHN SCH ×5 (04:09→20:14)
[2018-05-10] MEDS: PANTOPRAZOLE SODIUM 40 MG/VIAL IV SCH (08:36)
[2018-05-10] MEDS: ENOXAPARIN 30MG/0.3ML SYR SUBCUT SCH (08:37)
[2018-05-10 10:27] LABS: BG BASE EXCESS -1.7 mmol/L (-2.0-2.0); BG CARBOXYHEMOGLOBIN 0.2 % (0.5-1.5); BG DEOXYHEMOGLOBIN 1.9 % (0.0-5.0); BG FRACTION INSPIRED OXYGEN 45; BG METHEMOGLOBIN 0.3 % (0.0-1.5); BG OXYGEN SATURATION 98.1 % (92.0-98.5); BG OXYHEMOGLOBIN 97.6 % (94.0-97.0); BG PCO2 38.4 mmHg (35.0-45.0); BG PH 7.395 (7.350-7.450); BG PO2 117.6 mmHg (75.0-100.0); BG SAMPLE SITE RIGHT RADIAL; BG TIDAL VOLUME(mL) 400 mL; BG TOTAL HEMOGLOBIN 9.7 g/dL (12.0-18.0); BG VENT MODE VENT - A/C; BG VENT RATE 14 set
[2018-05-10] MEDS ORDERED: VANCOMYCIN 1 G PREMIX 200 ML IV SCH (10:30)
[2018-05-10] MEDS ORDERED: VANCOMYCIN 750 MG PREMIX 150 ML IV SCH (12:00)
[2018-05-10] MEDS: SODIUM CHLORIDE 0.9% 1,000 ML IV SCH (13:36)
[2018-05-10] MEDS: FLUCONAZOLE 200 MG/100ML BAG 100 ML IV SCH (17:47)
[2018-05-10] MEDS: CLONIDINE 0.1MG TABLET PO SCH (17:49)
[2018-05-11] VITALS (12 sets, daily range): BP systolic 102–137; BP diastolic 58–76
[2018-05-11] MEDS: IPRATROPIUM/ALBUTEROL 0.5-3(2.5)MG/3ML NEB HHN SCH ×6 (00:24→20:46)
[2018-05-11] MEDS: PIPERACILLIN/TAZ 2.25G PREMIX 50 ML IV SCH ×2 (02:09→07:47)
[2018-05-11] MEDS: SODIUM CHLORIDE 0.9% 1,000 ML IV SCH (06:24)
[2018-05-11] MEDS: ENOXAPARIN 30MG/0.3ML SYR SUBCUT SCH (08:22)
[2018-05-11] MEDS: PANTOPRAZOLE SODIUM 40 MG/VIAL IV SCH (08:22)
[2018-05-11] MEDS ORDERED: VANCOMYCIN 500 MG PREMIX 100 ML IV SCH (09:00)
[2018-05-11 10:18] LABS: BASOPHILS % 0.8 % (0.0-2.0); EOSINOPHILS % 7.6 % (0.0-5.0); HEMATOCRIT. 24.5 % (36.0-48.0); HEMOGLOBIN. 8.4 g/dL (12.0-16.0); LYMPHOCYTES % 16.1 % (20.0-50.0); MEAN CORPUSCULAR HEMOGLOBIN 35.3 pg (28.0-32.0); MEAN CORPUSCULAR VOLUME 102.7 fL (81.0-99.0); MEAN PLATELET VOLUME 11.8 fl (7.4-10.4); MONOCYTES % 9.4 % (2.0-8.0); NEUTROPHILS % 66.1 % (40.0-76.0); PLATELET 167 x1000/uL (130-400); RED BLOOD CELL COUNT 2.39 mill/uL (4.2-5.4); RED CELL DISTRIBUTION WIDTH 15.9 % (11.6-14.6)
[2018-05-11 10:32] LABS: CHLORIDE 122 mEq/L (98-107)
[2018-05-11 10:42] LABS: PHOSPHORUS 1.7 mg/dL (2.5-4.9)
[2018-05-11] MEDS ORDERED: CEFEPIME 2,000 MG in DEXT 5% WATER 100 ML IV SCH (13:00)
[2018-05-11] MEDS ORDERED: POTASSIUM PHOS,M-BASIC-D-BASIC 10 MMOL in DEXT 5% WATER 246.6667 ML IV NR (14:30)
[2018-05-11] MEDS: TOBRAMYCIN SULFATE 40MG/ML 2ML INH SCH (15:22)
[2018-05-11] MEDS: CLONIDINE 0.1MG TABLET PO SCH (17:41)
[2018-05-11] MEDS: FLUCONAZOLE 200 MG/100ML BAG 100 ML IV SCH (18:34)
[2018-05-11] MEDS: TEMAZEPAM 15MG CAPSULE PO SCH (20:40)
[2018-05-12] VITALS (12 sets, daily range): BP systolic 110–131; BP diastolic 50–78
[2018-05-12] MEDS: IPRATROPIUM/ALBUTEROL 0.5-3(2.5)MG/3ML NEB HHN SCH ×6 (00:56→21:43)
[2018-05-12] MEDS: TOBRAMYCIN SULFATE 40MG/ML 2ML INH SCH ×2 (04:42→12:42)
[2018-05-12 06:29] LABS: BASOPHILS % 0.5 % (0.0-2.0); EOSINOPHILS % 6.8 % (0.0-5.0); HEMATOCRIT. 25.7 % (36.0-48.0); HEMOGLOBIN. 8.4 g/dL (12.0-16.0); LYMPHOCYTES % 20.7 % (20.0-50.0); MEAN CORPUSCULAR HEMOGLOBIN 34.1 pg (28.0-32.0); MEAN CORPUSCULAR VOLUME 104.2 fL (81.0-99.0); MEAN PLATELET VOLUME 11.7 fl (7.4-10.4); MONOCYTES % 8.5 % (2.0-8.0); NEUTROPHILS % 63.5 % (40.0-76.0); PLATELET 167 x1000/uL (130-400); RED BLOOD CELL COUNT 2.47 mill/uL (4.2-5.4); RED CELL DISTRIBUTION WIDTH 15.3 % (11.6-14.6)
[2018-05-12] MEDS: PANTOPRAZOLE SODIUM 40 MG/VIAL IV SCH (09:15)
[2018-05-12] MEDS: ENOXAPARIN 30MG/0.3ML SYR SUBCUT SCH (09:15)
[2018-05-12] MEDS: CLONIDINE 0.1MG TABLET PO SCH (16:54)
[2018-05-12] MEDS: FLUCONAZOLE 200 MG/100ML BAG 100 ML IV SCH (16:54)
[2018-05-12] MEDS: TEMAZEPAM 15MG CAPSULE PO SCH (22:07)
[2018-05-13] VITALS (12 sets, daily range): BP systolic 116–140; BP diastolic 60–82
[2018-05-13] MEDS: TOBRAMYCIN SULFATE 40MG/ML 2ML INH SCH ×3 (01:25→22:00)
[2018-05-13] MEDS: IPRATROPIUM/ALBUTEROL 0.5-3(2.5)MG/3ML NEB HHN SCH ×5 (04:03→20:27)
[2018-05-13] MEDS: ENOXAPARIN 40MG/0.4ML SYR SUBCUT SCH (09:19)
[2018-05-13] MEDS: PANTOPRAZOLE SODIUM 40 MG/VIAL IV SCH (09:19)
[2018-05-13] MEDS: FLUCONAZOLE 200 MG/100ML BAG 100 ML IV SCH (17:53)
[2018-05-13] MEDS: CLONIDINE 0.1MG TABLET PO SCH (17:53)
[2018-05-13] MEDS: TEMAZEPAM 15MG CAPSULE PO SCH (20:32)
[2018-05-14] VITALS (11 sets, daily range): BP systolic 107–159; BP diastolic 54–81
[2018-05-14] MEDS: IPRATROPIUM/ALBUTEROL 0.5-3(2.5)MG/3ML NEB HHN SCH ×6 (00:34→20:48)
[2018-05-14] MEDS: TOBRAMYCIN SULFATE 40MG/ML 2ML INH SCH ×2 (08:49→20:35)
[2018-05-14] MEDS: ENOXAPARIN 40MG/0.4ML SYR SUBCUT SCH (09:45)
[2018-05-14] MEDS: PANTOPRAZOLE SODIUM 40 MG/VIAL IV SCH (09:46)
[2018-05-14 15:40] LABS: BASOPHILS % 0.9 % (0.0-2.0); EOSINOPHILS % 7.2 % (0.0-5.0); HEMATOCRIT. 26.8 % (36.0-48.0); HEMOGLOBIN. 8.8 g/dL (12.0-16.0); LYMPHOCYTES % 21.5 % (20.0-50.0); MEAN CORPUSCULAR HEMOGLOBIN 33.5 pg (28.0-32.0); MEAN CORPUSCULAR VOLUME 101.6 fL (81.0-99.0); MEAN PLATELET VOLUME 11.5 fl (7.4-10.4); MONOCYTES % 6.8 % (2.0-8.0); NEUTROPHILS % 63.6 % (40.0-76.0); PLATELET 163 x1000/uL (130-400); RED BLOOD CELL COUNT 2.64 mill/uL (4.2-5.4); RED CELL DISTRIBUTION WIDTH 14.4 % (11.6-14.6)
[2018-05-14 15:41] LABS: CHLORIDE 116 mEq/L (98-107)
[2018-05-14 15:46] LABS: PHOSPHORUS 2.8 mg/dL (2.5-4.9)
[2018-05-14] MEDS: FLUCONAZOLE 200 MG/100ML BAG 100 ML IV SCH (17:14)
[2018-05-14] MEDS: CLONIDINE 0.1MG TABLET PO SCH (17:15)
[2018-05-14] MEDS ORDERED: ALTEPLASE 2MG/VIAL ITC ONE (21:15)
[2018-05-14] MEDS: TEMAZEPAM 15MG CAPSULE PO SCH (21:59)
[2018-05-15] VITALS (14 sets, daily range): BP systolic 108–139; BP diastolic 58–72
[2018-05-15] MEDS: IPRATROPIUM/ALBUTEROL 0.5-3(2.5)MG/3ML NEB HHN SCH ×6 (00:39→20:10)
[2018-05-15] MEDS: TOBRAMYCIN SULFATE 40MG/ML 2ML INH SCH (08:35)
[2018-05-15] MEDS: FAMOTIDINE 20MG TABLET PO SCH (09:00)
[2018-05-15] MEDS: ENOXAPARIN 40MG/0.4ML SYR SUBCUT SCH (09:00)
[2018-05-15] MEDS: BUDESONIDE 0.5MG/2ML NEB HHN SCH ×2 (11:34→20:11)
[2018-05-15] MEDS: CLONIDINE 0.1MG TABLET PO SCH (17:30)
[2018-05-15] MEDS: FLUCONAZOLE 200 MG/100ML BAG 100 ML IV SCH (17:30)
[2018-05-16] VITALS (14 sets, daily range): BP systolic 111–159; BP diastolic 51–85
[2018-05-16] MEDS: IPRATROPIUM/ALBUTEROL 0.5-3(2.5)MG/3ML NEB HHN SCH ×6 (00:06→23:46)
[2018-05-16] MEDS: BUDESONIDE 0.5MG/2ML NEB HHN SCH ×2 (08:09→19:58)
[2018-05-16] MEDS: TOBRAMYCIN SULFATE 40MG/ML 2ML INH SCH ×2 (08:10→19:58)
[2018-05-16 09:20] LABS: BASOPHILS % 0.6 % (0.0-2.0); EOSINOPHILS % 5.5 % (0.0-5.0); HEMATOCRIT. 26.9 % (36.0-48.0); HEMOGLOBIN. 9.2 g/dL (12.0-16.0); LYMPHOCYTES % 20.4 % (20.0-50.0); MEAN CORPUSCULAR HEMOGLOBIN 34.1 pg (28.0-32.0); MEAN CORPUSCULAR VOLUME 100.3 fL (81.0-99.0); MEAN PLATELET VOLUME 10.9 fl (7.4-10.4); MONOCYTES % 7.5 % (2.0-8.0); PLATELET 213 x1000/uL (130-400); RED BLOOD CELL COUNT 2.68 mill/uL (4.2-5.4); RED CELL DISTRIBUTION WIDTH 14.1 % (11.6-14.6)
[2018-05-16] MEDS: ENOXAPARIN 40MG/0.4ML SYR SUBCUT SCH (09:42)
[2018-05-16] MEDS: FAMOTIDINE 20MG TABLET PO SCH (09:42)
[2018-05-16 09:48] LABS: CHLORIDE 109 mEq/L (98-107)
[2018-05-16] MEDS: CLONIDINE 0.1MG TABLET PO SCH (16:42)
[2018-05-16] MEDS: FLUCONAZOLE 200 MG/100ML BAG 100 ML IV SCH (16:42)
[2018-05-17] VITALS: BP 129/67
== END 2018-05-17 01:07 | DRG 720 ==
LOC: ER 21:05 → EDBEDREQTM 22:06 → EDBEDREQ 22:06 → MICUSO 22:56 → ENRESERV 05-09 → 5EST 05-09 20:45
PROVIDERS: ADMIT Internal Medicine Nephrology; ATTEND Internal Medicine Nephrology
PROC: 5A1955Z Respiratory Ventilation, Greater than 96 Consecutive Hours (ICD-10-PCS; principal; 2018-05-08)
DX: A41.9 Sepsis, unspecified organism (principal); J69.0 Pneumonitis due to inhalation of food and vomit; J96.21 Acute and chronic respiratory failure with hypoxia; E43 Unspecified severe protein-calorie malnutrition; R65.21 Severe sepsis with septic shock; Z99.11 Dependence on respirator [ventilator] status; G93.41 Metabolic encephalopathy; N17.9 Acute kidney failure, unspecified; E87.0 Hyperosmolality and hypernatremia; Z93.0 Tracheostomy status; I50.9 Heart failure, unspecified; E87.5 Hyperkalemia; I11.0 Hypertensive heart disease with heart failure; E11.9 Type 2 diabetes mellitus without complications; R74.0 Nonspecific elevation of levels of transaminase and lactic acid dehydrogenase [LDH]; N39.0 Urinary tract infection, site not specified; F03.90 Unspecified dementia, unspecified severity, without behavioral disturbance, psychotic disturbance, mood disturbance, and anxiety; R74.8 Abnormal levels of other serum enzymes; E03.9 Hypothyroidism, unspecified; Z87.440 Personal history of urinary (tract) infections; Z78.1 Physical restraint status; Z93.1 Gastrostomy status; Z79.2 Long term (current) use of antibiotics; Z79.899 Other long term (current) drug therapy; Z82.49 Family history of ischemic heart disease and other diseases of the circulatory system; Z68.24 Body mass index [BMI] 24.0-24.9, adult
CPT/HCPCS: 36415; 36600; 51702; 71045; 80048; 80053; 80305; 81003; 82375; 82805; 82962; 83605; 83690; 83735; 83880; 84100; 84439; 84443; 84481; 84484; 85025; 85610; 85730; 86850; 86900; 87040; 87070; 87077; 87086; 87106; 87186; 93005; 93970; 94003; 94640; 96365; 96366; 96367; 96375; 99291; A6261; C9113; J0692; J1450; J1650; J2060; J2405; J2543; J3260; J3370; J3490; J7030; J7040; J7060; J7620; J7626; A4315